=== PATIENT | female | born 1955 ===

== ENCOUNTER 2017-12-24 12:02 | Outpatient (CLI) | payer OTHER ==
[~2017-12-24 12:02] MED LIST: ANTIVERT PO; CLONAZEPAM1 MG/TAB PO; INTESTINEX680 MG PO; LAMICTAL100 MG PO; NORVASC5 MG PO; OMEPRAZOLE20 MG PO; PERCOCET 5/3251 TAB PO; PRILOSEC10 MG PO; RESTORIL PO; SYNTHROID88 MCG PO; ZOCOR20 MG PO
== END 2017-12-24 14:52 | disposition home or self-care (01) ==
LOC: RX STUDY 12:02
DX: K57.20 Diverticulitis of large intestine with perforation and abscess without bleeding (principal); N82.3 Fistula of vagina to large intestine

== ENCOUNTER 2023-01-02 10:48 | Inpatient (IN) | payer OTHER ==
[~2023-01-02] VITALS: Ht 149.9 cm; Wt 72.6 kg
[2023-01-05] MEDS ORDERED: LAMICTAL100 MG PO (13:12)
[2023-01-07] MEDS ORDERED: LOSARTAN POTASS50 MG (07:54)
[2023-01-07] MEDS ORDERED: FAMOTIDINE20 MG (07:54)
[2023-01-07] MEDS ORDERED: FLUOROMETHOLONE5 ML (07:54)
[2023-01-07] MEDS ORDERED: RESTORIL30 MG (07:54)
[2023-01-07] MEDS ORDERED: ATORVASTATIN CA20 MG (07:54)
[2023-01-07] MEDS ORDERED: ANTIVERT25 M2 (07:55)
[2023-01-07] MEDS ORDERED: SYNTHROID100 MCG (07:55)
[2023-01-08] MEDS ORDERED: NEURONTIN300 MG PO (07:45)
[2023-01-08] MEDS ORDERED: TRAM1TAB98 PO (07:45)
[2023-01-08] MEDS ORDERED: LEVSIN/SL0.125 MG SL (07:46)
== END 2023-01-08 09:31 | disposition home or self-care (01) | DRG 748 ==
LOC: O/R 01-07 05:00 → SURH 01-07 09:00 → SURG 01-07 09:57
PROVIDERS: ADMIT Surgery; ATTEND Surgery
PROC: 3E0T3BZ Introduction of Anesthetic Agent into Peripheral Nerves and Plexi, Percutaneous Approach (ICD-10-PCS; 2023-01-07)
PROC: 0JQC0ZZ Repair Pelvic Region Subcutaneous Tissue and Fascia, Open Approach (ICD-10-PCS; principal; 2023-01-07 09:00)
DX: N81.6 Rectocele (principal); Z20.822 Contact with and (suspected) exposure to COVID-19